=== PATIENT | female | born 1980 | race Caucasian/White ===

== ENCOUNTER → 2017-12-01 12:48 | Outpatient (CLI) | payer MEDICAID | END | disposition home or self-care (01) | LOC: D.US 12:48 | DX: N93.9 Abnormal uterine and vaginal bleeding, unspecified (principal) ==

== ENCOUNTER 2018-01-11 05:35 | Day surgery (SDC) | payer MEDICAID ==
[2018-01-10 16:09] LABS: BASOPHILS 1.1 % (0-2); EOSINOPHILS 2.5 % (0-7); HEMOGLOBIN 12.8 g/dL (12-16); MCH 31.2 pg (26.0-34.0); MCHC 33.7 g/dL (31.0-37.0); MCV 92.7 fL (80.0-100.0); MEAN PLATELET VOLUME 11.5 fL (7.4-10.4); MONOCYTES 7.7 % (2-11); NEUTROPHILS 52.7 % (40-80); PLATELET COUNT 288 10x3/uL (130-400); RDW 14.6 % (11.5-14.5); WBC 6.5 10x3/uL (4.8-10.8)
[2018-01-10 16:54] LABS: CALCIUM 10.1 mg/dL (8.5-10.1); CARBON DIOXIDE 26.2 mmol/L (21.0-32.0); CREATININE - SERUM 0.9 mg/dL (0.6-1.3); POTASSIUM - SERUM 4.2 mmol/L (3.5-5.1)
[~2018-01-11] VITALS: Ht 165.1 cm; Wt 82.6 kg
[~2018-01-11 05:35] MED LIST: CYCLOBENZAPRINE10 MG PO; MELATONIN10 M1 PO; ZANAFLEX4 MG PO
[2018-01-11 06:46] VITALS: BP 107/74; Ht 165.1 cm; Wt 82.6 kg
[2018-01-11 06:53] LABS: HCG URINE NEGATIVE (NEGATIVE)
[2018-01-11] MEDS ORDERED: OXYCODONE-APAP1 T10 PO (12:14)
[2018-01-11] MEDS ORDERED: IBUPROFEN800 MG (12:14)
[2018-01-11] MEDS ORDERED: IBUPROFEN800 MG PO (12:15)
== END 2018-01-11 14:28 | disposition home or self-care (01) ==
LOC: D.OPS 05:35 → D.PAN 07:30 → D.OPS 07:30
PROVIDERS: Obstetrics & Gynecology
DX: D25.9 Leiomyoma of uterus, unspecified (principal); N73.6 Female pelvic peritoneal adhesions (postinfective); Z01.812 Encounter for preprocedural laboratory examination